=== PATIENT | male | born 1955 | race Caucasian/White ===

== ENCOUNTER 2017-08-23 17:07 | Emergency (ER) | payer MEDICARE, OTHER ==
[~2017-08-23] VITALS: Ht 180.3 cm; Wt 81.7 kg
[~2017-08-23 17:07] MED LIST: ACEDIPPM; ALBU90OI6 INH; ALBUIS INH; AMLO5 PO; AMOCLA500 PO; ASMANEX110 MC1 INH; ASPI325; ATOR10; Acetaminophen325 M1 PO; Amoxicillin500 MG PO; BENZ100A PO; CEPH500 PO; CITA20 PO; Cipro500 MG PO; DIAZ5 PO; DIPH25; DISU250 PO; ETOD300 PO; FAMO20 PO; FENO160 PO; Flagyl500 MG PO; IBUP800; IBUP800 PO; KETO10; LEVO750 PO; METO50ER PO; METR500 PO; PROACE100; PROACE100 PO; QVAR INH; Questran4 GM PO; RXIBUP800 PO; RXPROACE PO; Seroquel50 MG PO; ZOLP10; ZOLP5 PO
== END 2017-08-23 18:10 | disposition home or self-care (01) ==
LOC: ER 17:07
DX: R25.2 Cramp and spasm (principal); Z59.0 Homelessness; I10 Essential (primary) hypertension; E78.5 Hyperlipidemia, unspecified; Z88.5 Allergy status to narcotic agent; Z88.8 Allergy status to other drugs, medicaments and biological substances; Z79.899 Other long term (current) drug therapy; Z87.891 Personal history of nicotine dependence
CPT/HCPCS: 99283